=== PATIENT | male | born 1965 | race Asian ===

== ENCOUNTER 2018-03-27 13:32 | Day surgery (SDC) | payer OTHER ==
[2018-03-27] MEDS ORDERED: LIDOCAINE 2% (SDV) 5 ML INJ (15:57)
[2018-03-27] MEDS ORDERED: MIDAZOLAM 1 MG/ML 2 ML INJ ×2 (15:58→15:59)
[2018-03-27] MEDS ORDERED: LIDOCAINE 4% SOLUTION 50 ML BTL (15:59)
[2018-03-27] MEDS ORDERED: PROPOFOL 60 ML (15:59)
== END 2018-03-27 17:26 | disposition home or self-care (01) ==
LOC: GIL 13:32
DX: Z12.11 Encounter for screening for malignant neoplasm of colon (principal); D12.2 Benign neoplasm of ascending colon; K29.70 Gastritis, unspecified, without bleeding
CPT/HCPCS: 43239; 88305